=== PATIENT | female | born 1950 | race American Indian/Alaskan Native ===

== ENCOUNTER 2017-12-27 08:35 | Outpatient (CLI) | payer MEDICARE ==
--- NOTE | 2017-12-27 15:35 | Cat Scan Report ---
CT ABDOMEN WITH CONTRAST: 12/27/17 CLINICAL: Abdominal wall mass. COMPARISON: None. TECHNIQUE: Volumetric acquisition and 1.25 millimeter scan reconstructions after the uneventful intravenous injection of 100 cc Omnipaque 300. Consent was obtained prior to the administration of contrast. Oral contrast was also given. FINDINGS: Abdomen: A subcutaneous oval water density cyst of the left flank measures 5.1 cm craniocaudal dimension by 6.0 cm AP dimension at 3.7 cm transverse dimension. It has a smooth thin wall and approximately 40% of its margin is contiguous to the dermis. It measures 10.5 Hounsfield units in density. No other mass or cyst. A small fat containing umbilical hernia. The lung bases are clear. Normal liver size, contour and overall density. A couple of subcentimeter right hepatic hypodensities which are probably benign cysts. Normal bile ducts and gallbladder. Normal stomach, duodenum, pancreas and spleen. Normal adrenal glands and kidneys. The renal collecting systems and ureters are nondilated. Mild calcification and tortuosity of the aorta and iliac arteries. Normal inferior vena cava. The imaged portions of small bowel and colon are normal.No mass or ascites. Bone windows demonstrate no suspicious bone lesion. Multilevel degenerative disc disease of the lower thoracic and upper lumbar spine. IMPRESSION:1. A 6 cm cyst of the left lateral abdominal wall which is most likely a benign epidermoid cyst. 2. A small fat containing umbilical hernia. 3. Tiny benign right hepatic cysts are. 4. Thoracolumbar degenerative disc disease.
== END 2017-12-27 08:36 | disposition home or self-care (01) ==
LOC: SPVIMAG 08:35
PROVIDERS: ATTEND Internal Medicine
DX: K42.9 Umbilical hernia without obstruction or gangrene (principal); K76.89 Other specified diseases of liver; M51.35 Other intervertebral disc degeneration, thoracolumbar region
CPT/HCPCS: 74160; Q9967